=== PATIENT | female | born 1965 | race Caucasian/White ===

== ENCOUNTER 2016-02-27 14:00 | Outpatient (RCR) ==
--- NOTE | 2016-02-18 16:21 | RS.OPPTDN ---
Subjective Date of Note: 02/18/16 Visit #: 6 Date of Evaluation: 01/23/16 Payer Source: Medicaid Treatment Diagnosis: neck pain, cervical spondylosis Current Subjective/complaints:: Reports hurting more yesterday,at the base of her neck ,also had a migraine headache. Pain Assessment - Pain Description Pain Location: right side of neck and R occipital region Pain Description: Tightness, Aching Current Pain Intensity: not rated - Heat/Cryotherapy Treatment: Hot Pack (20 mins. to cervical area,prior to manual therapy) Interventions - Exercise/Activities/Manual Therapy Exercises/Activities: Independent with HEP for cervical ROM and postural awareness Total minutes of Exercise: 0 Manual Therapy: X 30 mins. total, DTM to decrease muscle tone along SCM, upper traps, and cervical paraspinals in prone position,occipital release in supine. Total minutes of Manual Therapy: 0 HOME EXERCISE PROGRAM: cervical retraction, pec stretch (corner stretch) and levator scapula stretch - Charges Total Direct Minutes: 30 Total Treatment Time: 50 Procedures billed for this date of service:: hp,manual therapy Assessment: Patient has trigger points along the medial border of the R scapula today that are tender to palpate ,but this improves as treatment progresses. Patient Education: Education of Plan of Care Patient demonstrates compliance with HEP?: Yes Short Term Goals Goal #1: Left cervical rotation WFL's. Goal to be met by: 02/09/16 Progress towards Goal:: Partially Met Goal #2: Muscle tone in bilateral upper traps decreased to minimal. Goal to be met by: 02/09/16 Progress towards Goal:: Partially Met Goal #3: Headache frequency reduced to less than daily. Goal to be met by: 02/09/16 (migraine yesterday) Progress towards Goal:: Regressing Goal #4: Patient to demonstrate improved postural awareness. 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 Goal to be met by: 03/06/16 Progress towards goal: Met Goal #2: Pt able to perform all home and work activities with minimal neck/head pain Goal to be met by: 03/06/16 Progress towards goal: Progressing Goal #3: Score on Neck Disability Index improved to 20. Goal to be met by: 03/06/16 Goal #4: Patient able to sleep through the night w/o interruption from neck pain. Goal to be met by: 03/06/16 Plan PLAN OF CARE EXPIRES ON:: 03/06/16 ORDER # VISITS AND/OR THROUGH DATE: 03/06/16 PLAN: Continue Plan of Care
--- NOTE | 2016-02-20 15:24 | RS.CXNS ---
Date of scheduled appointment: 02/20/16 Type: Cancel Reason for Cancel/NS: Unknown
--- NOTE | 2016-02-25 16:25 | RS.OPPTDN ---
Subjective Date of Note: 02/25/16 Visit #: 7 Date of Evaluation: 01/23/16 Payer Source: Medicaid Treatment Diagnosis: neck pain, cervical spondylosis Current Subjective/complaints:: Reports last feeling ill,went to , has possible gall bladder issues.She does feel the therapy has helped her neck. Pain Assessment - Pain Description Pain Location: right side of neck and R occipital region Pain Description: Tightness, Aching Current Pain Intensity: not rated - Heat/Cryotherapy Treatment: Hot Pack (20 mins. to cervical region,prior to manual therapy) Interventions - Exercise/Activities/Manual Therapy Exercises/Activities: Independent with HEP for cervical ROM and postural awareness Total minutes of Exercise: 0 Manual Therapy: X 15 mins. total, DTM to decrease muscle tone along SCM, upper traps, and cervical paraspinals in prone position. Total minutes of Manual Therapy: 15 HOME EXERCISE PROGRAM: cervical retraction, pec stretch (corner stretch) and levator scapula stretch - Charges Total Direct Minutes: 15 Total Treatment Time: 35 Procedures billed for this date of service:: hp,manual therapy 1 Assessment: Abbreviated treatment today per patient request ,has to order picker her daughter.She does have less tenderness along the lateral aspect of her neck, upper traps.She still has tenderness with moderate pressure at the occiput. Patient Education: Education of diagnosis, Body/Joint mechanics, Home Exercise Program, Home Safety, Activity Modification, Education of Plan of Care Patient demonstrates compliance with HEP?: Yes Short Term Goals Goal #1: Left cervical rotation WFL's. Goal to be met by: 02/09/16 Progress towards Goal:: Partially Met Goal #2: Muscle tone in bilateral upper traps decreased to minimal. Goal to be met by: 02/09/16 Progress towards Goal:: Partially Met Goal #3: Headache frequency reduced to less than daily. Goal to be met by: 02/09/16 Progress towards Goal:: Progressing Goal #4: Patient to demonstrate improved postural awareness. Goal to be met by: 02/09/16 Progress towards Goal:: Partially Met Correction Goals Goal #1: Pt independent and compliant with basic HEP. Goal to be met by: 03/06/16 Progress towards goal: Met Goal #2: Pt able to perform all home and work activities with minimal neck/head pain Goal to be met by: 03/06/16 Progress towards goal: Partially Met Goal #3: Score on Neck Disability Index improved to 20. Goal to be met by: 03/06/16 Goal #4: Patient able to sleep through the night w/o interruption from neck pain. Goal to be met by: 03/06/16 Progress towards goal: Progressing Plan PLAN OF CARE EXPIRES ON:: 03/06/16 ORDER # VISITS AND/OR THROUGH DATE: 03/06/16 PLAN: Continue Plan of Care
--- NOTE | 2016-02-27 15:26 | RS.OPPTDC ---
Date of Discharge: 02/27/16 Date of Evaluation: 01/23/16 Number of Visits: 8 Treatment Diagnosis: neck pain, cervical spondylosis Current Level of Function: Independent in community and all ADL's. Pain Assessment - Pain Description Pain Location: right side of neck and R occipital region Pain Description: Tightness, Dull, Aching Current Pain Intensity: not rated Functional Outcome Measure Neck Disability Index: 22 - G Codes & Severity Modifier G Codes & Modifier: NA Source of G Code score: NA Observation - Observation Posture: Decreased Cervical Lordosis Gait - Gait Pattern General Gait Pattern Observation: No Deviations/Normal General Range of Motion: WFL - Heat/Cryotherapy Treatment: Hot Pack (20 mins. prior to manual therapy) Interventions - Exercise/Activities/Manual Therapy Exercises/Activities: Independent with HEP for cervical ROM and postural awareness Total minutes of Exercise: 0 Manual Therapy: X 25 mins. total, DTM to decrease muscle tone along SCM, upper traps, and cervical paraspinals in prone position. Total minutes of Manual Therapy: 25 HOME EXERCISE PROGRAM: cervical retraction, pec stretch (corner stretch) and levator scapula stretch - Charges Total Direct Minutes: 25 Total Treatment Time: 45 Procedures billed for this date of service:: hp,manual therapy Assessment Assessment: Patient agrees with D/C plan today,has progressed well ,but her headaches and cervical pain are dependent upon amount of daily activity,with some symptoms being chronic due to cervical surgery in the past.She is motivated and compliant to recommendations of the therapy staff. Patient Education: Education of diagnosis, Body/Joint mechanics, Home Exercise Program, Home Safety, Activity Modification, Education of Plan of Care Rehab Potential: Good Short Term Goals Goal #1: Left cervical rotation WFL's. Goal to be met by: 02/09/16 Progress towards Goal:: Met Goal #2: Muscle tone in bilateral upper traps decreased to minimal. Goal to be met by: 02/09/16 Progress towards Goal:: Partially Met Comments:: R upper trap still has moderate tone Goal #3: Headache frequency reduced to less than daily. Goal to be met by: 02/09/16 Progress towards Goal:: Partially Met Goal #4: Patient to demonstrate improved postural awareness. Goal to be met by: 02/09/16 Progress towards Goal:: Partially Met Support Coordinator Goals Goal #1: Pt independent and compliant with basic HEP. Goal to be met by: 03/06/16 Progress towards goal: Met Goal #2: Pt able to perform all home and work activities with minimal neck/head pain Goal to be met by: 03/06/16 Progress towards goal: Met Goal #3: Score on Neck Disability Index improved to 20. Goal to be met by: 03/06/16 (22) Progress towards goal: Partially Met Goal #4: Patient able to sleep through the night w/o interruption from neck pain. Goal to be met by: 03/06/16 Progress towards goal: Partially Met Plan Reason for Discharge:: No Further Skilled Therapy Indicated
== END 2016-03-16 ==
PROVIDERS: ATTEND Neurological Surgery
DX: M51.36 Other intervertebral disc degeneration, lumbar region (principal); M54.17 Radiculopathy, lumbosacral region

== ENCOUNTER 2016-03-21 21:33 | Emergency (ER) ==
[2016-03-21 21:42] VITALS: BP 156/94; TEMP 97.3; BMI 21.7
[2016-03-21] MEDS ORDERED: PHENERGAN 25 MG/ML VIAL IM STA (22:19)
[2016-03-21] MEDS ORDERED: DILAUDID 2 MG/ML SYRINGE IM STA (22:19)
--- NOTE | 2016-03-21 22:36 | ED.PDOC ---
General ED Provider: Dr. ALEXY HALL-ER Chief Complaint: Headache Stated Complaint: my neck is hurting--i get injections and misssed my appt in jan--i worked out tonight and did too many stretches Time Seen by Physician: 21:40 Mode of Arrival: Walk-In Information Source: Patient Exam Limitations: No limitations Primary Care Provider: ALEXY HALL Nursing and Triage Documentation Reviewed and Agree: Yes Musculoskeletal Complaint Exam - Neck Pain Complaint/Exam Mechanism of Injury: Reports: No known trauma Onset/Duration: several hours Symptoms Are: Still present Timing: Constant Episodes Lasting: Hours Initial Severity: Mild Current Severity: Moderate Location: Reports: Discrete (posterior cervical) Character: Reports: Dull, Aching, Spasmodic, Stiffness Aggravating: Reports: Position, Movement Alleviating: Reports: None Associated Signs and Symptoms: Reports: Headache. Denies: Swelling, Redness, Bruising, Fever, Nuchal rigidity, Weakness, Paresthesia Related History: Reports: Previous neck injury Meningitis Risk Factors: Reports: None Cervical Spine Injury Risk Factors: Reports: Post-Midline CS tender Related Surgical History: Reports: Cervical Fusion Carotid Bruit Present: No Pain on Passive Flexion: Yes Positive Kernig's Sign: Yes ROM Limited In: Present: Flexion, Extension Pain Located at: posterior neck Tenderness: Present: Paraspinal Focal Weakness: Present: None Focal Sensory Loss: Reports: None Differential Diagnoses: Arthritis Review of Systems - Review Of Systems Constitutional: Reports: No symptoms Eyes: Reports: No symptoms Ears, Nose, Mouth, Throat: Reports: No symptoms Respiratory: Reports: No symptoms Cardiac: Reports: No symptoms GI: Reports: No symptoms : Reports: No symptoms Musculoskeletal: Reports: Neck pain Skin: Reports: No symptoms Neurological: Reports: No symptoms Endocrine: Reports: No symptoms Hematologic/Lymphatic: Reports: No symptoms All Other Systems: Reviewed and Negative Past Medical History - Past Medical History Endocrine: Reports: Unknown Cardiovascular: Reports: Unknown Respiratory: Reports: Unknown Hematological: Reports: Unknown Gastrointestinal: Reports: Unknown Genitourinary: Reports: Unknown Neuro/Psych: Reports: Unknown Musculoskeletal: Reports: Unknown Cancer: Reports: Unknown Last Menstrual Period: 5 days ago - Surgical History General Surgical History: Reports: Unknown - Family History Family History: Reports: Unknown - Social History Smoking Status: Never smoker Hx Substance Use: No Alcohol Screening: None Lives: With family - Immunizations Tetanus Shot up to Date: Yes Physical Exam - Physical Exam Appearance: Well-appearing, No pain distress, Well-nourished Pain Distress: Moderate Eyes: JERRY, EOMI, Conjunctiva clear ENT: Ears normal, Nose normal, Oropharynx normal Neck: Supple Respiratory: Airway patent, Breath sounds clear, Breath sounds equal, Respirations nonlabored Cardiovascular: RRR, Pulses normal, No rub, No murmur GI/: Soft, Nontender, No masses, Bowel sounds normal, No Organomegaly Musculoskeletal: Limited ROM Skin: Warm, Dry, Normal color Neurological: Sensation intact, Motor intact, Reflexes intact, Cranial nerves intact, Alert, Oriented Psychiatric: Affect appropriate, Mood appropriate Critical Care Note - Critical Care Note Total Time (mins): 0 Course - Course Orders, Labs, Meds: Orders Category Date Time Status Hydromorphone HCl/Pf [Dilaudid 2 mg/ml Syringe] MEDS 03/21/16 22:19 Discontinued 2 mg IM ONCE STA Promethazine HCl [Phenergan 25 mg/ml Vial] MEDS 03/21/16 22:19 Discontinued 25 mg IM ONCE STA Medications Discontinued Medications Generic Name Dose Route Start Last Admin Trade Name Freq PRN Reason Stop Dose Admin Hydromorphone HCl 2 mg 03/21/16 22:19 Dilaudid 2 Mg/Ml Syringe IM 03/21/16 22:20 ONCE STA Promethazine HCl 25 mg 03/21/16 22:19 Phenergan 25 Mg/Ml Vial IM 03/21/16 22:20 ONCE STA Vital Signs: Temp Pulse Resp BP Pulse Ox 03/21/16 21:34 97.3 F L 76 18 156/94 H 98 Departure - Departure Time of Disposition: 22:36 Disposition: HOME SELF-CARE Discharge Problem: Chronic neck pain Instructions: Neck Pain (ED) Condition: Good Pt referred to PMD for follow-up: Yes Additional Instructions: continue f/u with pain mananagement Allergies/Adverse Reactions: Allergies nitrofurantoin [From Macrobid] Adverse Reaction (Verified 03/21/16 21:41) Hives Sulfa (Sulfonamide Antibiotics) Adverse Reaction (Verified 03/21/16 21:42) sulfamethoxazole [From Bactrim] Adverse Reaction (Verified 03/21/16 21:41) trimethoprim [From Bactrim] Adverse Reaction (Verified 03/21/16 21:41) Home Medications: Ambulatory Orders Calcium Citrate 200 mg PO TID 03/21/16 Cetirizine HCl [Zyrtec] 10 mg PO DAILY 03/21/16 Levothyroxine Sodium [Synthroid] 100 mcg PO QDAC 03/21/16 Multivitamin [Multi-Vitamin Daily] 1 each PO DAILY 03/21/16 Norethindrone-E.estradiol-Iron [Microgestin Fe 1.5-30 Tab] 1 each PO DAILY 03/21 Tizanidine HCl [Zanaflex] 4 mg PO BEDTIME 03/21/16 Disposition Discussed With: Patient, Family
== END 2016-03-21 23:20 | disposition home or self-care (01) ==
LOC: ED 21:33
DX: M54.2 Cervicalgia (principal); G89.29 Other chronic pain; R51 Headache
CPT/HCPCS: 96372; 99282

== ENCOUNTER 2016-03-21 23:40 | Emergency (ER) ==
[2016-03-21 23:40] VITALS: BMI 21.7
[2016-03-21 23:47] VITALS: BP 152/92; TEMP 97
[2016-03-21] MEDS ORDERED: ZOFRAN 4 MG/2 ML IM STA (23:47)
--- NOTE | 2016-03-21 23:58 | ED.PDOC ---
General ED Provider: Dr. ALEXY HALL-ER Chief Complaint: Nausea/Vomiting Stated Complaint: im nauseated--i think it was from my pain meds--denies any chest pain or sob.. Time Seen by Physician: 23:45 Mode of Arrival: Walk-In Information Source: Patient, Family Exam Limitations: No limitations Primary Care Provider: ALEXY HALL Nursing and Triage Documentation Reviewed and Agree: Yes GI Complaint Exam - Vomiting/Diarrhea Complaint/Exam Onset/Duration: one hour Symptoms Are: Still present Episodes of Vomiting over last 24 Hours: 0 Initial Severity: Mild Current Severity: Mild Character of Vomiting: Denies: Non-bilious, Bilious, Bloody, Retching Aggravating: Reports: None Alleviating: Reports: None Associated Signs and Symptoms: Denies: Dizziness, Light-headedness, Melena, Hematemesis, Fever, Abdominal pain, Cramping Recent Positive Test: No Use of Oral Contraceptives: No Use of Depoprovera: No Compliant With Contraceptive Use: No Non-GI Risk Factors: Reports: None Surgical Obstruction Risk Factors: Reports: None Related Surgical History: Reports: None Abdominal Findings: Present: None Kussmaul Respirations Present: No Differential Diagnoses: Dehydration Review of Systems - Review Of Systems Constitutional: Reports: No symptoms Eyes: Reports: No symptoms Ears, Nose, Mouth, Throat: Reports: No symptoms Respiratory: Reports: No symptoms Cardiac: Reports: No symptoms GI: Reports: Nausea : Reports: No symptoms Musculoskeletal: Reports: No symptoms Skin: Reports: No symptoms Neurological: Reports: No symptoms Endocrine: Reports: No symptoms Hematologic/Lymphatic: Reports: No symptoms All Other Systems: Reviewed and Negative Past Medical History - Past Medical History Endocrine: Reports: Unknown Cardiovascular: Reports: Unknown Respiratory: Reports: Unknown Hematological: Reports: Unknown Gastrointestinal: Reports: Unknown Genitourinary: Reports: Unknown Neuro/Psych: Reports: Unknown Musculoskeletal: Reports: Unknown Cancer: Reports: Unknown Last Menstrual Period: 5 days ago - Surgical History General Surgical History: Reports: Unknown - Family History Family History: Reports: Unknown - Social History Smoking Status: Never smoker Hx Substance Use: No Alcohol Screening: None - Immunizations Tetanus Shot up to Date: No (unsure) Physical Exam - Physical Exam Appearance: Well-appearing, No pain distress, Well-nourished Eyes: JERRY, EOMI, Conjunctiva clear ENT: Ears normal, Nose normal, Oropharynx normal Neck: Supple Respiratory: Airway patent, Breath sounds clear, Breath sounds equal, Respirations nonlabored Cardiovascular: RRR, Pulses normal, No rub, No murmur GI/: Soft, Nontender, No masses, Bowel sounds normal, No Organomegaly Musculoskeletal: Limited ROM Skin: Warm, Dry, Normal color Neurological: Sensation intact, Motor intact, Reflexes intact, Cranial nerves intact, Alert, Oriented Psychiatric: Affect appropriate, Mood appropriate Re-Evaluation - Re-Evaluation Time of Re-Evaluation: 23:59 Status: Improved Vital Signs Stable: Yes Pain Level: 1 Appearance: NAD Lungs: Clear Skin: Warm and Dry Neuro: Alert and Oriented X3 CV: RRR Critical Care Note - Critical Care Note Total Time (mins): 0 Course - Course Orders, Labs, Meds: Orders Category Date Time Status Ondansetron HCl/Pf [Zofran 4 mg/2 ml] MEDS 03/21/16 23:47 Discontinued 4 mg IM ONCE STA Medications Discontinued Medications Generic Name Dose Route Start Last Admin Trade Name Freq PRN Reason Stop Dose Admin Ondansetron HCl 4 mg 03/21/16 23:47 Zofran 4 Mg/2 Ml IM 03/21/16 23:48 ONCE STA Vital Signs: Temp Pulse Resp BP Pulse Ox 03/21/16 23:41 97 F L 71 18 152/92 H 96 Departure - Departure Time of Disposition: 23:59 Disposition: HOME SELF-CARE Discharge Problem: Nausea Instructions: Acute Nausea and Vomiting (ED) Condition: Good Pt referred to PMD for follow-up: No Additional Instructions: call if any problems Allergies/Adverse Reactions: Allergies nitrofurantoin [From Macrobid] Adverse Reaction (Verified 03/21/16 23:47) Hives Sulfa (Sulfonamide Antibiotics) Adverse Reaction (Verified 03/21/16 23:47) sulfamethoxazole [From Bactrim] Adverse Reaction (Verified 03/21/16 23:47) trimethoprim [From Bactrim] Adverse Reaction (Verified 03/21/16 23:47) Home Medications: Ambulatory Orders Calcium Citrate 200 mg PO TID 03/21/16 Cetirizine HCl [Zyrtec] 10 mg PO DAILY 03/21/16 Levothyroxine Sodium [Synthroid] 100 mcg PO QDAC 03/21/16 Multivitamin [Multi-Vitamin Daily] 1 each PO DAILY 03/21/16 Norethindrone-E.estradiol-Iron [Microgestin Fe 1.5-30 Tab] 1 each PO DAILY 03/21 Tizanidine HCl [Zanaflex] 4 mg PO BEDTIME 03/21/16 Disposition Discussed With: Patient, Family
[2016-03-22] MEDS ORDERED: VISTARIL INJ IM STA (00:13)
[2016-03-22] MEDS ORDERED: SODIUM CHLORIDE 1,000 ML IV STA (01:40)
[2016-03-22] MEDS ORDERED: ZOFRAN 4 MG/2 ML IVP STA (01:41)
[2016-03-22 01:59] LABS: BASOPHILS # (AUTO) 0.1 K/uL (0-0.2); BASOPHILS % (AUTO) 0.8 % (0.0-3.0); EOSINOPHILS # (AUTO) 0.1 K/ul (0.0-0.7); EOSINOPHILS % (AUTO) 0.7 % (0.0-7.0); HEMATOCRIT 37.4 % (37.0-47.0); HEMOGLOBIN 12.8 g/dl (12.0-16.0); IMMATURE GRANULOCYTE % (AUTO) 0.3 % (0.0-5.0); LYMPHOCYTES # (AUTO) 2.1 K/uL (0.60-3.4); LYMPHOCYTES % (AUTO) 27.4 (10.0-50.0); MEAN CORPUSCULAR HEMOGLOBIN 31.8 pg (27.0-31.0); MEAN CORPUSCULAR HGB CONC 34.2 (31.8-35.4); MEAN CORPUSCULAR VOLUME 92.8 fl (81.0-99.0); MONOCYTES # (AUTO) 0.6 K/uL (0.4-2.0); MONOCYTES % (AUTO) 8.4 (0-10); NEUTROPHILS # (AUTO) 4.7 K/ul (2.0-6.9); NEUTROPHILS % (AUTO) 62.4; PLATELET COUNT 216 10^3/uL (140-440); RED BLOOD COUNT 4.03 10^6/ul (4.20-5.40); WHITE BLOOD COUNT 7.51 K/ul (4.6-10.2)
[2016-03-22 02:28] LABS: ALBUMIN 3.8 g/dL (3.4-5.0); ALBUMIN/GLOBULIN RATIO 1.23; ANION GAP 14.6; BILIRUBIN,TOTAL 0.53 mg/dL (0.00-1.20); BUN/CREATININE RATIO 15.92; CALCIUM 8.1 mg/dL (8.2-10.2); CREATININE 1.13 mg/dL (0.60-1.30); POTASSIUM 4.6 mmol/L (3.5-5.10); TOTAL PROTEIN 6.9 g/dL (6.4-8.2)
[2016-03-22] MEDS ORDERED: REGLAN IVP STA (02:32)
[2016-03-22 03:04] LABS: CREATINE KINASE 273 U/L
== END 2016-03-22 05:18 | disposition home or self-care (01) ==
LOC: ED 23:40
DX: R11.2 Nausea with vomiting, unspecified (principal); M54.2 Cervicalgia; G89.29 Other chronic pain; R51 Headache
CPT/HCPCS: 36415; 80053; 82150; 82550; 82553; 83690; 84484; 85025; 93005; 93010; 96360; 96361; 96372; 96374; 96375; 99282; 99283; 99284

== ENCOUNTER 2016-04-13 20:26 | Emergency (ER) ==
[2016-04-13] MEDS ORDERED: SODIUM CHLORIDE 1,000 ML IV STA (20:33)
[2016-04-13] MEDS ORDERED: PROTONIX IV IVP STA (20:33)
[2016-04-13] MEDS ORDERED: PHENERGAN 25 MG/ML VIAL 25 MG in SODIUM CHLORIDE 50 ML IV STA (20:34)
[2016-04-13] MEDS ORDERED: PEPCID IVP STA (20:34)
[2016-04-13 20:36] VITALS: BP 168/79; TEMP 97.3; BMI 22.1
[2016-04-13 20:42] LABS: BASOPHILS % (AUTO) 0.1 % (0.0-3.0); HEMATOCRIT 37.3 % (37.0-47.0); IMMATURE GRANULOCYTE % (AUTO) 0.3 % (0.0-5.0); LYMPHOCYTES % (AUTO) 8.6 (10.0-50.0); MEAN CORPUSCULAR HEMOGLOBIN 31.9 pg (27.0-31.0); MEAN CORPUSCULAR HGB CONC 34.9 (31.8-35.4); MEAN CORPUSCULAR VOLUME 91.4 fl (81.0-99.0); MONOCYTES # (AUTO) 0.5 K/uL (0.4-2.0); NEUTROPHILS # (AUTO) 10.4 K/ul (2.0-6.9); PLATELET COUNT 285 10^3/uL (140-440); RED BLOOD COUNT 4.08 10^6/ul (4.20-5.40); WHITE BLOOD COUNT 11.99 K/ul (4.6-10.2)
--- NOTE | 2016-04-13 21:09 | CT ---
EXAM: CT of the abdomen and pelvis without contrast. HISTORY: Status post cholecystectomy today with persistent nausea. PROCEDURE: Contiguous axial CT images of the abdomen and pelvis without contrast with coronal and s agittal reformats. FINDINGS: The liver is normal in appearance. The gallbladder is surgically absent. The pancreas, spleen, right adrenal gland and kidneys are normal in appearance. There are calcifications in the l eft adrenal gland. The abdominal aorta is normal in appearance. The appendix is not visualized. T he other visualized loops of bowel are normal in appearance. There is a moderate amount of free int raperitoneal air consistent with the patients recent surgery. There is minimal free fluid in the pe lvis. The uterus is unremarkable. The bladder is adequately filled with no abnormality identified. The bony structures are unremarkable. There is subcutaneous air in the right abdominal wall consi stent with the patient's surgical history. Impression: Status postcholecystectomy with moderate amount of free intraperitoneal air consistent with the patients surgical history. If a perforated viscus is suspected, recommend further evaluati on. Minimal free fluid in the pelvis. Minimal subcutaneous air in the right abdominal wall consistent with the patient's recent surgery.
[2016-04-13] MEDS ORDERED: PHENERGAN 25 MG/ML VIAL ONE (21:12)
[2016-04-13 21:18] LABS: ALANINE AMINOTRANSFERASE 21 U/L (12-78); ALBUMIN/GLOBULIN RATIO 1.14; ALKALINE PHOSPHATASE 41 U/L (42-98); AMYLASE 70 U/L (25-115); ANION GAP 15.9; ASPARTATE AMINO TRANSFERASE 32 U/L (15-37); BLOOD UREA NITROGEN 12 mg/dL (7-18); BUN/CREATININE RATIO 10.16; CALCIUM 8.3 mg/dL (8.2-10.2); CARBON DIOXIDE 24 mmol/L (21-32); CHLORIDE 100 mmol/L (98-107); CREATINE KINASE 176 U/L; CREATININE 1.18 mg/dL (0.60-1.30); GLUCOSE 112 mg/dL (70-110); LIPASE 16 U/L (8-78); POTASSIUM 4.9 mmol/L (3.5-5.10); SODIUM 135 mmol/L (136-145); TOTAL PROTEIN 7.5 g/dL (6.4-8.2)
[2016-04-13 21:19] LABS: CREATINE KINASE MB 1.1 ng/ml (0.0-3.6)
[2016-04-13] MEDS ORDERED: ZOFRAN 4 MG/2 ML IVP STA (21:52)
[2016-04-13 22:07] LABS: BILIRUBIN,URINE Negative (NEGATIVE); KETONES,URINE Negative (NEGATIVE); LEUKOCYTE ESTERASE ,URINE Trace (NEGATIVE); NITRITE,URINE Negative (NEGATIVE); PROTEIN,URINE Trace (NEGATIVE); URINE, BLOOD Trace-intact (NEGATIVE)
[2016-04-13 22:15] LABS: ADD URINE MICROSCOPIC YES
[2016-04-13 22:17] LABS: BACTERIA,URINE 1+ (NOT PRESENT)
--- NOTE | 2016-04-13 22:45 | ED.PDOC ---
General ED Provider: Dr. ALEXY HALL-ER Chief Complaint: Nausea/Vomiting Stated Complaint: jacob been throwing up --i had surgery tdoay Time Seen by Physician: 20:35 Mode of Arrival: Walk-In Information Source: Patient, Family Exam Limitations: No limitations Primary Care Provider: ALEXY HALL Nursing and Triage Documentation Reviewed and Agree: Yes GI Complaint Exam - Vomiting/Diarrhea Complaint/Exam Onset/Duration: several hours Symptoms Are: Still present Initial Severity: Mild Current Severity: Mild Character of Vomiting: Reports: Non-bilious Aggravating: Reports: Food Alleviating: Reports: None Associated Signs and Symptoms: Denies: Dizziness, Light-headedness, Melena, Hematemesis, Fever, Abdominal pain, Cramping Recent Positive Test: No (had neg preg test this am) Use of Oral Contraceptives: No Use of Depoprovera: No Compliant With Contraceptive Use: No Non-GI Risk Factors: Reports: None Surgical Obstruction Risk Factors: Reports: Prior abdominal surgery Related Surgical History: Reports: Cholecystectomy Abdominal Findings: Present: None [place] Respirations Present: No Differential Diagnoses: Dehydration, Viral Gastroenteritis, Bacterial Gastroenteritis Review of Systems - Review Of Systems Constitutional: Reports: No symptoms Eyes: Reports: No symptoms Ears, Nose, Mouth, Throat: Reports: No symptoms Respiratory: Reports: No symptoms Cardiac: Reports: No symptoms GI: Reports: Nausea, Vomiting : Reports: No symptoms Musculoskeletal: Reports: No symptoms Skin: Reports: No symptoms Neurological: Reports: No symptoms Endocrine: Reports: No symptoms Hematologic/Lymphatic: Reports: No symptoms All Other Systems: Reviewed and Negative Past Medical History - Past Medical History Endocrine: Reports: Unknown Cardiovascular: Reports: Unknown Respiratory: Reports: Unknown Hematological: Reports: Unknown Gastrointestinal: Reports: Unknown Genitourinary: Reports: CKD Neuro/Psych: Reports: Unknown Musculoskeletal: Reports: Unknown Cancer: Reports: Unknown Last Menstrual Period: POST MENAPAUSAL - Surgical History General Surgical History: Reports: Unknown - Family History Family History: Reports: Unknown - Social History Smoking Status: Never smoker Hx Substance Use: No Alcohol Screening: None - Immunizations Tetanus Shot up to Date: No Physical Exam - Physical Exam Appearance: Well-appearing, No pain distress, Well-nourished Eyes: JERRY, EOMI, Conjunctiva clear ENT: Ears normal, Nose normal, Oropharynx normal Neck: Supple Respiratory: Airway patent Cardiovascular: RRR GI/: Soft, Nontender, No masses, Bowel sounds normal, No Organomegaly Musculoskeletal: Normal strength, ROM intact, No edema, No calf tenderness Skin: Warm, Dry, Normal color Neurological: Sensation intact, Motor intact, Reflexes intact, Cranial nerves intact, Alert, Oriented Psychiatric: Affect appropriate Interpretation - Radiology Interpretation Radiology Interpretation By: Radiologist Radiology Results: Negative Exam Interpreted: CT Scan - EKG Interpretation Time of EKG #1: 22:47 Rate: Normal Rhythm: Sinus Ectopy: None [place]: NL ST Segment: Normal Re-Evaluation - Re-Evaluation Time of Re-Evaluation: 22:47 Status: Improved Vital Signs Stable: Yes Pain Level: 1--but no nausea Appearance: NAD Lungs: Clear Skin: Warm and Dry Neuro: Alert and Oriented X3 CV: RRR Critical Care Note - Critical Care Note Total Time (mins): 0 Course - Course Hematology/Chemistry: 04/13/16 20:30 04/13/16 20:30 Orders, Labs, Meds: Lab Review 04/13/16 04/13/16 20:30 21:52 WBC 11.99 H RBC 4.08 L Hgb 13.0 Hct 37.3 MCV 91.4 MCH 31.9 H MCHC 34.9 RDW Coeff of Dinesh 12.4 Plt Count 285 Immature Gran % (Auto) 0.3 Neut % (Auto) 87.0 Lymph % (Auto) 8.6 L [place] % (Auto) 4.0 Eos % (Auto) 0.0 Baso % (Auto) 0.1 Immature Gran # (Auto) 0.0 Neut # 10.4 H Lymph # 1.0 [place] # 0.5 Eos # 0.0 Baso # 0.0 Sodium 135 L Potassium 4.9 Chloride 100 Carbon Dioxide 24 Anion Gap 15.9 BUN 12 Creatinine 1.18 Estimated GFR (MDRD) 48.00 BUN/Creatinine Ratio 10.16 Glucose 112 H Calcium 8.3 Total Bilirubin 0.60 AST 32 ALT 21 Alkaline Phosphatase 41 L Total Creatine Kinase 176 CK-MB (CK-2) 1.1 CK-MB (CK-2) % 0.61248 Troponin I < 0.0100 Total Protein 7.5 Albumin 4.0 Globulin 3.5 Albumin/Globulin Ratio 1.14 Amylase 70 Lipase 16 Urine Color Yellow Urine Clarity Slightly Urine pH 7.0 Ur Specific [place] 1.020 Urine Protein Trace Urine Glucose (UA) Negative Urine Ketones Negative Urine Blood Trace-intact Urine Nitrite Negative Urine Bilirubin Negative Urine Urobilinogen 0.2 Ur Leukocyte Esterase Trace Urine Microscopic RBC 2-5 Urine Microscopic WBC 2-5 Ur Squamous Epith Cells 20-30 Urine Bacteria 1+ Urine Mucus [employer] Urine Yeast Trace Orders Category Date Time Status EKG-(ED ONLY) Stat CARDIO 04/13/16 20:32 Completed IV [ED IV/MEDIPORT/POWERPORT] .ONCE EMERGENCY 04/13/16 20:33 Active AMYLASE Stat LAB 04/13/16 20:30 Completed CBC W/ AUTO DIFF Stat LAB 04/13/16 20:30 Completed COMPREHENSIVE METABOLIC PANEL Stat LAB 04/13/16 20:30 Completed CREATINE KINASE Stat LAB 04/13/16 20:30 Completed LIPASE Stat LAB 04/13/16 20:30 Completed TROPONIN I Stat LAB 04/13/16 20:30 Completed URINALYSIS C & S IF INDICATED Stat LAB 04/13/16 21:52 Completed URINE CULTURE Stat LAB 04/13/16 22:19 Received 0.9 % Sodium Chloride [Saline Flush] MEDS 04/13/16 20:33 Ordered 1 syr IVF PRN PRN Famotidine Inj [Pepcid] MEDS 04/13/16 20:34 Discontinued 40 mg IVP ONCE STA Ondansetron HCl/Pf [Zofran 4 mg/2 ml] MEDS 04/13/16 21:52 Discontinued 8 mg IVP ONCE STA Pantoprazole Sodium [Protonix IV] MEDS 04/13/16 20:33 Discontinued 40 mg IVP ONCE STA Promethazine HCl [Phenergan 25 mg/ml Vial] MEDS 04/13/16 21:12 Discontinued 25 mg .ROUTE .STK-MED ONE Promethazine HCl [Phenergan 25 mg/ml Vial] 25 mg MEDS 04/13/16 20:34 Discontinued 0.9 % Sodium Chloride [Sodium Chloride] 50 ml IV ONCE Sodium Chloride 0.9% [Sodium Chloride] 1,000 ml MEDS 04/13/16 20:[address] ABDOMEN/PELVIS WO CONTRAST Stat RADS 04/13/16 20:34 Completed Medications Generic Name Dose Route Start Last Admin Trade Name Freq PRN Reason Stop Dose Admin Sodium Chloride 1 syr 04/13/16 20:33 Saline Flush IVF PRN PRN To flush IV Discontinued Medications Generic Name Dose Route Start Last Admin Trade Name Rose Marie PRN Reason Stop Dose Admin Famotidine 40 mg 04/13/16 20:34 04/13/16 21:24 Pepcid IVP 04/13/16 20:35 40 mg ONCE STA Administration Promethazine HCl 25 mg/ Sodium 51 mls @ 75 mls/hr 04/13/16 20:34 04/13/16 21: 24 Chloride IV 04/13/16 21:14 75 mls/hr ONCE STA Administration Sodium Chloride 1,000 mls @ 500 mls/hr 04/13/16 20:33 04/13/16 21:25 Sodium Chloride IV 04/13/16 22:32 500 mls/hr BOLUS STA Administration Ondansetron HCl 8 mg 04/13/16 21:52 04/13/16 22:02 Zofran 4 Mg/2 Ml IVP 04/13/16 21:53 8 mg ONCE STA Administration Pantoprazole Sodium 40 mg 04/13/16 20:33 04/13/16 21:24 Protonix Iv IVP 04/13/16 20:34 40 mg ONCE STA Administration Vital Signs: Temp Pulse Resp BP Pulse Ox 04/13/16 20:30 97.3 F L 70 20 168/79 H 97 Departure - Departure Time of Disposition: 22:47 Disposition: HOME SELF-CARE Discharge Problem: Nausea Instructions: Acute Nausea and Vomiting (ED) Condition: Good Pt referred to PMD for follow-up: Yes Additional Instructions: if vomiting persists--talk to your surgeon Allergies/Adverse Reactions: Allergies nitrofurantoin [From Macrobid] Adverse Reaction (Verified 04/13/16 20:33) Hives Sulfa (Sulfonamide Antibiotics) Adverse Reaction (Verified 04/13/16 20:33) sulfamethoxazole [From Bactrim] Adverse Reaction (Verified 04/13/16 20:33) trimethoprim [From Bactrim] Adverse Reaction (Verified 04/13/16 20:33) Home Medications: Ambulatory Orders Calcium Citrate 200 mg PO TID 03/21/16 Cetirizine HCl [Zyrtec] 10 mg PO DAILY 03/21/16 Levothyroxine Sodium [Synthroid] 100 mcg PO QDAC 03/21/16 Multivitamin [Multi-Vitamin Daily] 1 each PO DAILY 03/21/16 Norethindrone-E.estradiol-Iron [Microgestin Fe 1.5-30 Tab] 1 each PO DAILY 03/21 Tizanidine HCl [Zanaflex] 4 mg PO BEDTIME 03/21/16 Disposition Discussed With: Patient, Family
== END 2016-04-13 23:03 | disposition home or self-care (01) ==
LOC: ED 20:26
DX: R11.2 Nausea with vomiting, unspecified (principal); Z98.890 Other specified postprocedural states; Z79.899 Other long term (current) drug therapy
CPT/HCPCS: 36415; 80053; 81001; 82150; 82550; 82553; 83690; 84484; 85025; 87086; 93005; 93010; 96361; 96365; 96375; 99284

== ENCOUNTER 2017-04-08 12:00 | Outpatient (CLI) ==
--- NOTE | 2017-04-08 14:01 | DI ---
EXAM: Two views of the chest. History: Cough. Findings: Heart size is within normal limits. No focal consolidation. No appreciable pleural fluid and no pneumothorax. Postsurgical changes of the cervical spine. No acute osseous abnormalities. Calcified granuloma within the left hilum. Impression: No acute cardiopulmonary process.
== END 2017-04-08 12:01 | disposition home or self-care (01) ==
LOC: RAD 12:00
PROVIDERS: ATTEND Family Medicine
DX: R05 Cough (principal)

== ENCOUNTER 2017-04-08 13:56 | Emergency (ER) ==
[2017-04-08 14:02] VITALS: BP 118/71; TEMP 101.2; BMI 22.4
--- NOTE | 2017-04-08 15:33 | ED.PDOC ---
General ED Provider: Dr. ALFREDA BAKER Chief Complaint: Respiratory Complaint Stated Complaint: flu like symp Time Seen by Physician: 14:00 Mode of Arrival: Walk-In Information Source: Patient Exam Limitations: No limitations Primary Care Provider: ALEXY HALL Nursing and Triage Documentation Reviewed and Agree: Yes Reviewed sepsis parameters & appropriate labs ordered?: Yes (seen with MAT AT ALL TIMES ) System Inflammatory Response Syndrome: Not Applicable Sepsis Protocol: For patient's 13 years and over: Temp is 96.8 and below OR 101 and greater Pulse >90 BPM Resp >20/minute Acutely Altered Mental Status Are patient's symptoms suggestive of a new infection, such as: -Pneumonia -Skin, Soft Tissue -Endocarditis -UTI -Bone, Joint Infection -Implantable Device -Acute Abdominal Infection -Wound Infection -Meningitis -Blood Stream Catheter Infection -Unknown System Inflammatory Response Syndrome: Not Applicable EENT Complaint Exam - Throat Complaint/Exam Symptoms Are: Still present Timimg: Intermittent Initial Severity: Mild Current Severity: Mild Aggravating: Reports: None Associated Signs and Symptoms: Reports: Cough, Nasal congestion. Denies: Fever , Dysphagia, Drooling, Foreign body sensation, Chills, Wheezing, Hoarseness, Sinus discomfort, Difficulty breathing, Lethargy, Irritability, Decreased activity, Vomiting, Diarrhea, Decreased hearing, Ear drainage Uvula Midline: Yes Nivia-tonsillar Fluctuence: No Scarlatinaform Rash Present: No Stridor Present: No Sinus Tenderness Present: No Tonsillar Hypertrophy Present: No Tonsillar Exudate Present: No Nivia-tonsillar Swelling Present: No Adenopathy Present: No Splenomegaly Present: No Differential Diagnoses: Pharyngitis Review of Systems - Review Of Systems Constitutional: Reports: Fever, Malaise, Loss of appetite Eyes: Reports: No symptoms Ears, Nose, Mouth, Throat: Reports: No symptoms Respiratory: Reports: Cough Cardiac: Reports: No symptoms GI: Reports: No symptoms : Reports: No symptoms Musculoskeletal: Reports: No symptoms Skin: Reports: No symptoms Neurological: Reports: No symptoms Endocrine: Reports: No symptoms Hematologic/Lymphatic: Reports: No symptoms All Other Systems: Reviewed and Negative Past Medical History - Past Medical History Previously Healthy: Yes Endocrine: Reports: Unknown Cardiovascular: Reports: Unknown Respiratory: Reports: Unknown Hematological: Reports: Unknown Gastrointestinal: Reports: Unknown Genitourinary: Reports: CKD Neuro/Psych: Reports: Unknown Musculoskeletal: Reports: Unknown Cancer: Reports: Unknown Last Menstrual Period: menopause - Surgical History General Surgical History: Reports: Unknown - Family History Family History: Reports: Unknown - Social History Smoking Status: Never smoker Hx Substance Use: No Alcohol Screening: None Physical Exam - Physical Exam Appearance: Well-appearing, No pain distress, Well-nourished Eyes: JERRY, EOMI, Conjunctiva clear ENT: Ears normal, Nose normal, Oropharynx normal Respiratory: Airway patent, Breath sounds clear, Breath sounds equal, Respirations nonlabored Cardiovascular: RRR, Pulses normal, No rub, No murmur GI/: Soft, Nontender, No masses, Bowel sounds normal, No Organomegaly Musculoskeletal: Normal strength, ROM intact, No edema, No calf tenderness Skin: Warm, Dry, Normal color Neurological: Sensation intact, Motor intact, Reflexes intact, Cranial nerves intact, Alert, Oriented Psychiatric: Affect appropriate, Mood appropriate Interpretation - Radiology Interpretation Radiology Interpretation By: Radiologist Radiology Results: Negative Exam Interpreted: CXR Critical Care Note - Critical Care Note Total Time (mins): 0 Course - Course Hematology/Chemistry: 04/08/17 14:30 04/08/17 14:50 Orders, Labs, Meds: Lab Review 04/08/17 04/08/17 04/08/17 14:30 14:30 14:31 WBC 3.88 L RBC 4.18 L Hgb 13.1 Hct 38.2 MCV 91.4 MCH 31.3 H MCHC 34.3 RDW Coeff of Dinesh 11.9 Plt Count 174 Immature Gran % (Auto) 0.0 Neut % (Auto) 72.4 Lymph % (Auto) 12.4 [place] % (Auto) 13.9 H Eos % (Auto) 0.8 Baso % (Auto) 0.5 Immature Gran # (Auto) 0.0 Neut # 2.8 Lymph # 0.5 L [place] # 0.5 Eos # 0.0 Baso # 0.0 Sodium Potassium Chloride Carbon Dioxide Anion Gap BUN Creatinine Estimated GFR (MDRD) BUN/Creatinine Ratio Glucose Calcium Total Bilirubin AST ALT Alkaline Phosphatase Total Protein Albumin Globulin Albumin/Globulin Ratio Procalcitonin < 0.05 Influenza A (Rapid) Negative by naat Influenza B (Rapid) Positive by naat H 04/08/17 14:50 WBC RBC Hgb Hct MCV MCH MCHC RDW Coeff of Dinesh Plt Count Immature Gran % (Auto) Neut % (Auto) Lymph % (Auto) [place] % (Auto) Eos % (Auto) Baso % (Auto) Immature Gran # (Auto) Neut # Lymph # [place] # Eos # Baso # Sodium 141 Potassium 4.2 Chloride 102 Carbon Dioxide 28 Anion Gap 15.2 BUN 13 Creatinine 1.19 Estimated GFR (MDRD) 48.00 BUN/Creatinine Ratio 10.92 Glucose 90 Calcium 8.8 Total Bilirubin 0.4 AST 29 ALT 17 Alkaline Phosphatase 78 Total Protein 8.1 Albumin 4.3 Globulin 3.8 Albumin/Globulin Ratio 1.13 Procalcitonin Influenza A (Rapid) Influenza B (Rapid) Orders Category Date Time Status BLOOD CULTURE Stat LAB 04/08/17 14:24 Ordered CBC W/ AUTO DIFF Stat LAB 04/08/17 14:30 Completed COMPREHENSIVE METABOLIC PANEL Stat LAB 04/08/17 14:50 Completed FLU A/B MOLECULAR Stat LAB 04/08/17 14:31 Completed MOLECULAR GROUP A STREP Stat LAB 04/08/17 14:31 Completed PROCALCITONIN Stat LAB 04/08/17 14:30 Completed CHEST, 2 VIEWS PA & LAT Stat RADS 04/08/17 14:24 Ordered Vital Signs: Temp Pulse Resp BP Pulse Ox 04/08/17 13:56 101.2 F H 104 H 20 118/71 96 Departure - Departure Time of Disposition: 15:32 Disposition: HOME SELF-CARE Discharge Problem: Influenza Instructions: Influenza (ED) Condition: Good Pt referred to PMD for follow-up: Yes IPMP verified?: Yes Additional Instructions: Please call your Family Physician as soon as possible to schedule a follow-up appointment. Allergies/Adverse Reactions: Allergies nitrofurantoin [From Macrobid] Adverse Reaction (Verified 04/08/17 14:06) Hives Sulfa (Sulfonamide Antibiotics) Adverse Reaction (Verified 04/08/17 14:06) sulfamethoxazole [From Bactrim] Adverse Reaction (Verified 04/08/17 14:06) trimethoprim [From Bactrim] Adverse Reaction (Verified 04/08/17 14:06) Home Medications: Ambulatory Orders Calcium Citrate 200 mg PO TID 03/21/16 Cetirizine HCl [Zyrtec] 10 mg PO DAILY 03/21/16 Levothyroxine Sodium [Synthroid] 100 mcg PO QDAC 03/21/16 Multivitamin [Multi-Vitamin Daily] 1 each PO DAILY 03/21/16 Amoxicillin/Potassium Clav [Augmentin 875-125 mg Tab] 1 tab PO Q12HR 04/08/17 Gabapentin [Neurontin] 100 mg PO BEDTIME 04/08/17 Disposition Discussed With: Patient
== END 2017-04-08 15:55 | disposition home or self-care (01) ==
LOC: ED 13:56
DX: J10.1 Influenza due to other identified influenza virus with other respiratory manifestations (principal)
CPT/HCPCS: 36415; 80053; 84145; 85025; 87040; 87502; 87651; 99283

== ENCOUNTER 2017-09-09 09:23 | Outpatient (CLI) ==
--- NOTE | 2017-09-09 10:34 | US ---
EXAM: Ultrasound retroperitoneal complete. HISTORY: Edema. Chronic kidney disease stage III. COMPARISON: CT 04/13/2016. TECHNIQUE: Multiple pyle scale and color Doppler images. FINDINGS: Right kidney measures 8.3 x 3.5 x 2.9 cm. The left kidney measures 8.5 x 3.7 x 2.7 cm. C ortical echogenicity is normal. There is no hydronephrosis. Urinary bladder is unremarkable. IMPRESSION: No acute sonographic abnormality of the kidneys or bladder.
== END 2017-09-09 09:24 | disposition home or self-care (01) ==
LOC: RAD 09:23
PROVIDERS: ATTEND Internal Medicine
DX: N18.3 Chronic kidney disease, stage 3 (moderate) (principal); R60.9 Edema, unspecified; E83.30 Disorder of phosphorus metabolism, unspecified

== ENCOUNTER 2018-03-17 08:21 | Outpatient (CLI) ==
--- NOTE | 2018-03-17 09:18 | US ---
EXAM: Thyroid ultrasound HISTORY: Nodular goiter COMPARISON: None TECHNIQUE: Thyroid ultrasound was performed FINDINGS: Patient status post thyroidectomy. No definite residual thyroid tissue is seen. There is a enlarged lymph node adjacent to the left thyroid bed region, measuring 0.8 x 0.6 x 2.0 cm. IMPRESSION: Unexpected finding: Status post thyroidectomy. No residual thyroid tissue identified. E nlarged lymph node adjacent to the left thyroid bed region, could represent a malignant lymph node
== END 2018-03-17 08:22 | disposition home or self-care (01) ==
LOC: RAD 08:21
PROVIDERS: ATTEND Internal Medicine Endocrinology, Diabetes & Metabolism
DX: E04.9 Nontoxic goiter, unspecified (principal)

== ENCOUNTER 2023-11-05 18:23 | Observation (INO) ==
--- NOTE | 2023-11-05 18:58 | ED.PDOC ---
General ED Provider: Dr. GIA LEOS MD Chief Complaint: Syncope Stated Complaint: 58 yo WF was at a local festival, standing and talking to someone and felt like she may pass out. Went to the medical tent and her BP was 190/80 and she was sweating. She felt sweaty, near syncope and her vision was fuzzy. No BRYAN. No chest pain, cough or SOB but felt her heart was vibrating like a cell phone; however, no other palpitation of fast or slow heartbeat. Her BP has been borderline at times, up to 150/100 but most of the time her BP has been borderline, such as 140/80. 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 She was placed on HCTZ of 12.5 mg 4 days ago for her mildly elevated BP at times. No DM, cardiac, or lung disease. Time Seen by Provider: 11/05/23 18:25 Mode of Arrival: Walk-In Information Source: Patient Exam Limitations: No limitations Primary Care Provider: NETTE SILVER APRN, FNPBC Referred to ED by: Other (self) Nursing and Triage Documentation Reviewed and Agree: Yes Does Patient Take Opioids?: No Is Patient Opioid Naive?: No What is Opioid Naive?: *Opioid Naive implies the patient is not already taking opioids or not chronically receiving opioids on a daily basis. *PRN dosing is not "usually" associated with tolerance. *Patients are at higher risk of over-sedation and aspiration. What is Opioid Tolerant?: *Opioid Tolerance implies less than the expected response to an opioid. *Acquired tolerance is defined by the patient taking 60mg of oral morphine daily (or equianalgesic dose of another opioid) for 1 week or more. *Often associated with chronic pain. *May take more than usual dose to achieve desired pain control. Review of Systems Review Of Systems Constitutional: Reports Sweats Eyes: Reports No symptoms Ears, Nose, Mouth, Throat: Reports No symptoms Respiratory: Reports No symptoms; Denies Shortness of Breath Cardiac: Reports Palpitations; Denies Chest pain GI: Denies Abdominal pain, Constipated, Diarrhea or Vomiting : Reports No symptoms Musculoskeletal: Reports No symptoms Skin: Reports No symptoms Neurological: Reports Anxiety; Denies Cognitive dysfunction or Headache Endocrine: Denies Excessive sweating or Flushing [facility] Medical History Thyroid cancer C73 - Malignant neoplasm of thyroid gland (ICD-10) Thyroid disease E07.9 - Disorder of thyroid, unspecified (ICD-10) Social History Smoking and tobacco status: Never smoker Alcohol intake: never Counseling given: No Counseling provided: none Substance use type: does not use Counseling given: No Counseling provided: none Hillary/baptist: [facility] Special hillary needs: No Number of children: 1 Current occupational status: employed Do you think of yourself as: straight/heterosexual Current gender identity: female Female Reproductive History Menstrual Hx Hysterectomy: No Hx Tubal Ligation: No Physical Exam Physical Exam Appearance: Reports Well-appearing, No pain distress and Well-nourished Ill-appearing: None Pain Distress: None Eyes: Reports JERRY and EOMI ENT: Reports Nose normal and Oropharynx normal Neck: Supple Respiratory: Reports Airway patent, Breath sounds clear and Breath sounds equal; Denies Breath sounds diminished or Wheezes Cardiovascular: Reports RRR, Pulses normal, No rub and No murmur GI/: Reports Soft and Nontender Musculoskeletal: Reports Normal strength and ROM intact Skin: Reports Warm, Dry and Normal color Neurological: Reports Sensation intact and Motor intact Psychiatric: Reports Affect appropriate and Mood appropriate Interpretation EKG Interpretation EKG Interpretation By: ED Physician Time of EKG #1: 18:59 Rhythm: Sinus Ectopy: None [place]: NL ST Segment: Normal Interpretation: Normal EKG Physician Notification Case Discussed Physician Notified: Sylwia Hernandez Time of Notification: 19:47 Comments: Will admit to OBS Course Course 11/05/23 18:56 11/05/23 18:56 Orders, Labs, Meds: Lab Review 11/05/23 18:56 WBC 6.65 RBC 3.69 L Hgb 11.1 L Hct 33.8 L MCV 91.6 MCH 30.1 MCHC 32.8 RDW Coeff of Dinesh 12.4 Plt Count 226 Immature Gran % (Auto) 0.2 Neut % (Auto) 64.4 Lymph % (Auto) 22.0 [place] % (Auto) 11.3 H Eos % (Auto) 1.5 Baso % (Auto) 0.6 Neut # (Auto) 4.3 Lymph # (Auto) 1.5 [place] # (Auto) 0.8 Eos # (Auto) 0.1 Baso # (Auto) 0.0 Immature Gran # (Auto) 0.0 Sodium 140.0 Potassium 3.47 L Chloride 98.5 Carbon Dioxide 31.3 H Anion Gap 13.67 BUN 20.2 H Creatinine 1.97 H Estimated GFR (MDRD) 26.00 BUN/Creatinine Ratio 10.25 Glucose 49.8 L* Calcium 8.34 L Total Bilirubin 0.31 AST 41.8 H ALT 17.6 Alkaline Phosphatase 55.1 Troponin I < 0.012 Total Protein 7.43 Albumin 4.54 Globulin 2.89 Albumin/Globulin Ratio 1.57 D-Dimer 798.27 H Orders Category Date Time Status ADMIT OBSERVATION [PLACE PATIENT OBSERVATION] .TO ADMISSION 11/05/23 19:50 Ordered MEDSURG (MONITORED BED) EKG-(ED ONLY) Stat CARDIO 11/05/23 18:43 Completed ACCUCHECK (MED/SURG, SCU) [BLOOD GLUCOSE MONITORING ( CARE 11/05/23 19:52 Ordered MED/SURG)] ACCUCHECK Q6H TELEMETRY MONITORING TELE CARE 11/05/23 19:50 Ordered Orthostatic Vital Signs [ED ORTHOSTATIC VITAL SIGNS] . EMERGENCY 11/05/23 18:43 Active ONCE Saline Lock [ED IV/MEDIPORT/POWERPORT] .ONCE EMERGENCY 11/05/23 18:43 Active CBC W/ AUTO DIFF DAILY@0600 LAB 11/06/23 06:00 Ordered CBC W/ AUTO DIFF DAILY@0600 LAB 11/07/23 06:00 Ordered CBC W/ AUTO DIFF Stat LAB 11/05/23 18:56 Completed CBC W/ AUTO DIFF Stat LAB 11/05/23 19:52 Ordered CMP [COMPREHENSIVE METABOLIC PANEL] DAILY@0600 LAB 11/06/23 06:00 Ordered CMP [COMPREHENSIVE METABOLIC PANEL] DAILY@0600 LAB 11/07/23 06:00 Ordered CMP [COMPREHENSIVE METABOLIC PANEL] Stat LAB 11/05/23 18:56 Completed CMP [COMPREHENSIVE METABOLIC PANEL] Stat LAB 11/05/23 19:52 Ordered D-DIMER Stat LAB 11/05/23 18:56 Completed SARS COV-2 RNA RAPID ABBIE Stat LAB 11/05/23 Uncollected TROPONIN I DAILY@0600 LAB 11/06/23 06:00 Ordered TROPONIN I DAILY@0600 LAB 11/07/23 06:00 Ordered TROPONIN I Stat LAB 11/05/23 18:56 Completed TROPONIN I Stat LAB 11/05/23 19:52 Ordered 0.9 % Sodium Chloride [Saline Flush] Meds 11/05/23 18:43 Active 1 syr IVF PRN PRN Alendronate Sodium [Fosamax] Meds 11/05/23 20:00 Ordered See Dose Instructions PO .COMPLEX Dextrose 50 % in Water [Dextrose 50%-Water Abboject] Meds 11/05/23 19:29 Discontinued 50 ml IVP ONCE ONE Enoxaparin Sodium [Lovenox] Meds 11/05/23 20:00 Ordered 40 mg SUBCUT DAILY Fluticasone Propionate [Flonase] Meds 11/05/23 20:00 Ordered 1 spray ALECIA QDAY Gabapentin [Neurontin] Meds 11/05/23 21:00 Ordered 300 mg PO TID Pantoprazole Sodium [Protonix] Meds 11/05/23 20:00 Ordered 40 mg PO QDAY RINGERS LACTATED SOLUTION @ 125 MLS/HR(1,000ml) Meds 11/05/23 19:52 Ordered Ringers Lactated Solution [Lactated Ringers] 1,000 ml IV 125 mls/hr calcium citrate malate-vit D3 Meds 11/06/23 09:00 Ordered 2 tab PO BID levothyroxine Meds 11/05/23 20:00 Ordered 88 mcg PO QDAY [id number] [Alive Women's 50 Plus ( Meds 11/06/23 09:00 Ordered blend)] 1 tab PO DAILY CHEST, 1V AP ONLY Stat RADS 11/05/23 18:43 Completed Medications Generic Name Dose Route Start Last Admin Trade Name Freq PRN Reason Stop Dose Admin Alendronate Sodium 0 mg 11/05/23 20:00 Alendronate Sodium 70 Mg Tablet PO .COMPLEX SAMIRA Enoxaparin Sodium 40 mg 11/05/23 20:00 Enoxaparin Sodium 40 Mg/0.4 Ml Syr SUBCUT DAILY SAMIRA Fluticasone Propionate 1 spray 11/05/23 20:00 Fluticasone Propionate 16 Gm Nasal [place] ALECIA QDAY SAMIRA Gabapentin 300 mg 11/05/23 21:00 Gabapentin 300 Mg Capsule PO TID SAMIRA Lactated Ringer's 1,000 mls @ 125 mls/hr 11/05/23 19:52 Lactated Ringers IV 11/06/23 03:51 .Q8H ONE Non-Formulary Medication 2 tab 11/06/23 09:00 Calcium Citrate Malate-Vit D3 PO BID [facility] Non-Formulary Medication 88 mcg 11/05/23 20:00 Levothyroxine PO QDAY [facility] Non-Formulary Medication 1 tab 11/06/23 09:00 [id number] [Alive Women's 50 Plus (Blend)] PO DAILY [facility] Pantoprazole Sodium 40 mg 11/05/23 20:00 Pantoprazole Sodium 40 Mg Tablet. PO QDAY [facility] Sodium Chloride 1 syr 11/05/23 18:43 0.9% Sodium Chloride 10 Ml Disp.Syrin IVF PRN PRN To flush IV Discontinued Medications Generic Name Dose Route Start Last Admin Trade Name Freq PRN Reason Stop Dose Admin Dextrose 50 ml 11/05/23 19:29 11/05/23 19:33 Dextrose 50 % In Water 50 Ml Disp.Syrin IVP 11/05/23 19:30 50 ml ONCE ONE Administration Vital Signs: Temp Pulse Resp BP Pulse Ox 11/05/23 18:53 102 H 124/72 11/05/23 18:53 97 133/87 11/05/23 18:53 97 126/81 11/05/23 18:25 97.9 F 102 H 16 144/89 H 100 ANALISA Risk Score ANALISA Risk Score: Risk Score Odds of by 30D 0 0.1 (0.1-0.2) 1 0.3 (0.2-0.3) 2 0.4 (0.3-0.5) 3 0.7 (0.6-0.9) 4 1.2 (1.0-1.5) 5 2.2 (1.9-2.6) 6 3.0 (2.5-3.6) 7 4.8 (3.8-6.1) Physician Progress Note: Labs noted and BUN/Cr has changed quite a bit since September. Glucose of 49 and she had lunch around 2:30 PM and half a funnel cake. 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
[2023-11-05 19:03] LABS: BASOPHILS % (AUTO) 0.6 % (0.0-3.0); EOSINOPHILS # (AUTO) 0.1 K/ul (0.0-0.7); EOSINOPHILS % (AUTO) 1.5 % (0.0-7.0); HEMATOCRIT 33.8 % (37.0-47.0); HEMOGLOBIN 11.1 g/dl (12.0-16.0); IMMATURE GRANULOCYTE % (AUTO) 0.2 % (0.0-5.0); LYMPHOCYTES # (AUTO) 1.5 K/uL (0.60-3.4); MEAN CORPUSCULAR HEMOGLOBIN 30.1 pg (27.0-31.0); MEAN CORPUSCULAR HGB CONC 32.8 (31.8-35.4); MEAN CORPUSCULAR VOLUME 91.6 fl (81.0-99.0); MONOCYTES # (AUTO) 0.8 K/uL (0.4-2.0); MONOCYTES % (AUTO) 11.3 (0-10); NEUTROPHILS # (AUTO) 4.3 K/ul (2.0-6.9); NEUTROPHILS % (AUTO) 64.4 % (42.2-75.2); PLATELET COUNT 226 10^3/uL (140-440); RDW COEFFICIENT OF VARIATION 12.4 % (11.6-14.8); RED BLOOD COUNT 3.69 10^6/ul (4.20-5.40); WHITE BLOOD COUNT 6.65 K/ul (4.6-10.2)
[2023-11-05 19:11] LABS: ALANINE AMINOTRANSFERASE 17.6 U/L (0-35); ALBUMIN 4.54 g/dL (3.5-5.0); ALKALINE PHOSPHATASE 55.1 U/L (38-126); ASPARTATE AMINO TRANSFERASE 41.8 U/L (14-36); BILIRUBIN,TOTAL 0.31 mg/dL (0.2-1.3); BLOOD UREA NITROGEN 20.2 mg/dL (7-17); CALCIUM 8.34 mg/dL (8.4-10.2); CARBON DIOXIDE 31.3 mmol/L (22-30.0); CHLORIDE 98.5 mmol/L (98-107); CREATININE 1.97 mg/dL (0.60-1.30); POTASSIUM 3.47 mmol/L (3.5-5.1); TOTAL PROTEIN 7.43 g/dL (6.3-8.2)
[2023-11-05 19:13] LABS: GLUCOSE 49.8 mg/dL (74-106)
[2023-11-05 19:23] LABS: TROPONIN I < 0.012 ng/ml (0.0000-0.120)
[2023-11-05] MEDS: DEXTROSE 50%-WATER ABBOJECT IVP ONE (19:33)
--- NOTE | 2023-11-05 19:38 | DI ---
EXAM: CHEST FRONTAL VIEW HISTORY: Near-syncope COMPARISON: 11/30/2023 FINDINGS: Heart size and mediastinum remain within normal limits. Lungs are free of infiltrate. No consolidation or pleural fluid. No suspicious pulmonary opacities or nodules. There is no pneu mothorax or acute bony finding. IMPRESSION: No acute cardiopulmonary process.
--- NOTE | 2023-11-05 19:39 | ED.PDOC ---
General ED Provider: Dr. GIA LEOS MD Chief Complaint: Syncope Time Seen by Provider: 11/05/23 18:25 Mode of Arrival: Walk-In Information Source: Patient Exam Limitations: No limitations Primary Care Provider: NETTE SILVER APRN, FNPBC Does Patient Take Opioids?: No What is Opioid Naive?: *Opioid Naive implies the patient is not already taking opioids or not chronically receiving opioids on a daily basis. *PRN dosing is not "usually" associated with tolerance. *Patients are at higher risk of over-sedation and aspiration. What is Opioid Tolerant?: *Opioid Tolerance implies less than the expected response to an opioid. *Acquired tolerance is defined by the patient taking 60mg of oral morphine daily (or equianalgesic dose of another opioid) for 1 week or more. *Often associated with chronic pain. *May take more than usual dose to achieve desired pain control. [facility] Medical History Thyroid cancer C73 - Malignant neoplasm of thyroid gland (ICD-10) Thyroid disease E07.9 - Disorder of thyroid, unspecified (ICD-10) Social History Smoking and tobacco status: Never smoker Alcohol intake: never Counseling given: No Counseling provided: none Substance use type: does not use Counseling given: No Counseling provided: none Hillary/quaker: [employer] Special hillary needs: No Number of children: 1 Current occupational status: employed Do you think of yourself as: straight/heterosexual Current gender identity: female Female Reproductive History Menstrual Hx Hysterectomy: No Hx Tubal Ligation: No Course Course 11/05/23 18:56 11/05/23 18:56 Orders, Labs, Meds: Lab Review 11/05/23 18:56 WBC 6.65 RBC 3.69 L Hgb 11.1 L Hct 33.8 L MCV 91.6 MCH 30.1 MCHC 32.8 RDW Coeff of Dinesh 12.4 Plt Count 226 Immature Gran % (Auto) 0.2 Neut % (Auto) 64.4 Lymph % (Auto) 22.0 [place] % (Auto) 11.3 H Eos % (Auto) 1.5 Baso % (Auto) 0.6 Neut # (Auto) 4.3 Lymph # (Auto) 1.5 [place] # (Auto) 0.8 Eos # (Auto) 0.1 Baso # (Auto) 0.0 Immature Gran # (Auto) 0.0 Sodium 140.0 Potassium 3.47 L Chloride 98.5 Carbon Dioxide 31.3 H Anion Gap 13.67 BUN 20.2 H Creatinine 1.97 H Estimated GFR (MDRD) 26.00 BUN/Creatinine Ratio 10.25 Glucose 49.8 L* Calcium 8.34 L Total Bilirubin 0.31 AST 41.8 H ALT 17.6 Alkaline Phosphatase 55.1 Troponin I < 0.012 Total Protein 7.43 Albumin 4.54 Globulin 2.89 Albumin/Globulin Ratio 1.57 D-Dimer 798.27 H Orders Category Date Time Status ADMIT OBSERVATION [PLACE PATIENT OBSERVATION] .TO ADMISSION 11/05/23 19:50 Ordered MEDSURG (MONITORED BED) EKG-(ED ONLY) Stat CARDIO 11/05/23 18:43 Completed ACCUCHECK (MED/SURG, SCU) [BLOOD GLUCOSE MONITORING ( CARE 11/05/23 19:52 Ordered MED/SURG)] ACCUCHECK Q6H TELEMETRY MONITORING TELE CARE 11/05/23 19:50 Ordered Orthostatic Vital Signs [ED ORTHOSTATIC VITAL SIGNS] . EMERGENCY 11/05/23 18:43 Active ONCE Saline Lock [ED IV/MEDIPORT/POWERPORT] .ONCE EMERGENCY 11/05/23 18:43 Active CBC W/ AUTO DIFF DAILY@0600 LAB 11/06/23 06:00 Ordered CBC W/ AUTO DIFF DAILY@0600 LAB 11/07/23 06:00 Ordered CBC W/ AUTO DIFF Stat LAB 11/05/23 18:56 Completed CBC W/ AUTO DIFF Stat LAB 11/05/23 19:52 Ordered CMP [COMPREHENSIVE METABOLIC PANEL] DAILY@0600 LAB 11/06/23 06:00 Ordered CMP [COMPREHENSIVE METABOLIC PANEL] DAILY@0600 LAB 11/07/23 06:00 Ordered CMP [COMPREHENSIVE METABOLIC PANEL] Stat LAB 11/05/23 18:56 Completed CMP [COMPREHENSIVE METABOLIC PANEL] Stat LAB 11/05/23 19:52 Ordered D-DIMER Stat LAB 11/05/23 18:56 Completed SARS COV-2 RNA RAPID ABBIE Stat LAB 11/05/23 Uncollected TROPONIN I DAILY@0600 LAB 11/06/23 06:00 Ordered TROPONIN I DAILY@0600 LAB 11/07/23 06:00 Ordered TROPONIN I Stat LAB 11/05/23 18:56 Completed TROPONIN I Stat LAB 11/05/23 19:52 Ordered 0.9 % Sodium Chloride [Saline Flush] Meds 11/05/23 18:43 Active 1 syr IVF PRN PRN Alendronate Sodium [Fosamax] Meds 11/05/23 20:00 Ordered See Dose Instructions PO .COMPLEX Dextrose 50 % in Water [Dextrose 50%-Water Abboject] Meds 11/05/23 19:29 Discontinued 50 ml IVP ONCE ONE Enoxaparin Sodium [Lovenox] Meds 11/05/23 20:00 Ordered 40 mg SUBCUT DAILY Fluticasone Propionate [Flonase] Meds 11/05/23 20:00 Ordered 1 spray ALECIA QDAY Gabapentin [Neurontin] Meds 11/05/23 21:00 Ordered 300 mg PO TID Pantoprazole Sodium [Protonix] Meds 11/05/23 20:00 Ordered 40 mg PO QDAY RINGERS LACTATED SOLUTION @ 125 MLS/HR(1,000ml) Meds 11/05/23 19:52 Ordered Ringers Lactated Solution [Lactated Ringers] 1,000 ml IV 125 mls/hr calcium citrate malate-vit D3 Meds 11/06/23 09:00 Ordered 2 tab PO BID levothyroxine Meds 11/05/23 20:00 Ordered 88 mcg PO QDAY [id number] [Alive Women's 50 Plus ( Meds 11/06/23 09:00 Ordered blend)] 1 tab PO DAILY CHEST, 1V AP ONLY Stat RADS 11/05/23 18:43 Completed Medications Generic Name Dose Route Start Last Admin Trade Name Freq PRN Reason Stop Dose Admin Sodium Chloride 1 syr 11/05/23 18:43 0.9% Sodium Chloride 10 Ml Disp.Syrin IVF PRN PRN To flush IV Discontinued Medications Generic Name Dose Route Start Last Admin Trade Name Freq PRN Reason Stop Dose Admin Dextrose 50 ml 11/05/23 19:29 11/05/23 19:33 Dextrose 50 % In Water 50 Ml Disp.Syrin IVP 11/05/23 19:30 50 ml ONCE ONE Administration Vital Signs: Temp Pulse Resp BP Pulse Ox 11/05/23 18:53 102 H 124/72 11/05/23 18:53 97 133/87 09/21/24 18:53 97 126/81 11/05/23 18:25 97.9 F 102 H 16 144/89 H 100 ANALISA Risk Score ANALISA Risk Score: Risk Score Odds of by 30D 0 0.1 (0.1-0.2) 1 0.3 (0.2-0.3) 2 0.4 (0.3-0.5) 3 0.7 (0.6-0.9) 4 1.2 (1.0-1.5) 5 2.2 (1.9-2.6) 6 3.0 (2.5-3.6) 7 4.8 (3.8-6.1) Discharge Plan Discharge Patient Disposition: PLACED OBSERVATION Discharge Problem: Acute kidney injury, Near syncope, Hypoglycemia 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
[2023-11-05] MEDS: LACTATED RINGERS 1,000 ML IV ONE (20:11)
[2023-11-05 20:39] LABS: SARS COV-2 RNA RAPID NAAT NEGATIVE (NEGATIVE)
[2023-11-05] MEDS: NEURONTIN PO SCH (22:15)
[2023-11-05] MEDS: FLEXERIL PO PRN (22:15)
[2023-11-05] MEDS: K-DUR PO ONE (22:16)
[2023-11-05] MEDS: LOVENOX SUBCUT SCH (22:16)
[2023-11-05 22:27] VITALS: BMI 25.7
[2023-11-06] MEDS: LACTATED RINGERS 1,000 ML IV SCH (03:52)
[2023-11-06 05:17] VITALS: BP 115/77; PULSE 76; RESP 18; TEMP 97.4
[2023-11-06] MEDS: SYNTHROID PO SCH (05:36)
[2023-11-06 05:37] LABS: BASOPHILS % (AUTO) 0.6 % (0.0-3.0); EOSINOPHILS # (AUTO) 0.1 K/ul (0.0-0.7); EOSINOPHILS % (AUTO) 2.1 % (0.0-7.0); HEMATOCRIT 31.6 % (37.0-47.0); HEMOGLOBIN 10.2 g/dl (12.0-16.0); IMMATURE GRANULOCYTE % (AUTO) 0.2 % (0.0-5.0); LYMPHOCYTES # (AUTO) 2.1 K/uL (0.60-3.4); LYMPHOCYTES % (AUTO) 38.4 (10.0-50.0); MEAN CORPUSCULAR HEMOGLOBIN 29.8 pg (27.0-31.0); MEAN CORPUSCULAR HGB CONC 32.3 (31.8-35.4); MEAN CORPUSCULAR VOLUME 92.4 fl (81.0-99.0); MONOCYTES # (AUTO) 0.5 K/uL (0.4-2.0); MONOCYTES % (AUTO) 9.9 (0-10); NEUTROPHILS # (AUTO) 2.6 K/ul (2.0-6.9); NEUTROPHILS % (AUTO) 48.8 % (42.2-75.2); PLATELET COUNT 195 10^3/uL (140-440); RDW COEFFICIENT OF VARIATION 12.5 % (11.6-14.8); RED BLOOD COUNT 3.42 10^6/ul (4.20-5.40); WHITE BLOOD COUNT 5.36 K/ul (4.6-10.2)
[2023-11-06 05:44] LABS: ALANINE AMINOTRANSFERASE 15.4 U/L (0-35); ALBUMIN 3.84 g/dL (3.5-5.0); ALKALINE PHOSPHATASE 54.6 U/L (38-126); ASPARTATE AMINO TRANSFERASE 30.8 U/L (14-36); BILIRUBIN,TOTAL 0.23 mg/dL (0.2-1.3); BLOOD UREA NITROGEN 17.6 mg/dL (7-17); CALCIUM 8.15 mg/dL (8.4-10.2); CARBON DIOXIDE 33.1 mmol/L (22-30.0); CREATININE 1.19 mg/dL (0.60-1.30); GLUCOSE 101.4 mg/dL (74-106); POTASSIUM 4.08 mmol/L (3.5-5.1); SODIUM 139.7 mmol/L (134.5-145)
[2023-11-06 05:57] LABS: TROPONIN I < 0.012 ng/ml (0.0000-0.120)
[2023-11-06] MEDS: MULTIVITAMIN TABLET PO SCH (08:43)
[2023-11-06] MEDS: FLONASE NAS SCH (08:43)
[2023-11-06] MEDS: PROTONIX PO SCH (08:44)
[2023-11-06] MEDS ORDERED: [UNRECOGNIZED DRUG - OTHER] PO SCH (09:00)
[2023-11-06] MEDS ORDERED: CHOLECALCIFEROL PO SCH (09:00)
--- NOTE | 2023-11-06 09:36 | PCM.SS ---
Provider Provider[facility] Date Admission Date: 11/05/23 Discharge Date Discharge Date: 11/06/23 Primary Care Physician Primary Care Physician: NETTE SILVER APRN,[facility] Chief Complaint Reason For Visit: GARRISON, HYPOGLYCEMIA, NEAR SYNCOPE History of Present Illness History of Present Illness: Admitted 11/05/23 20:41, this 58 year old /WHITE/F with pmhx of thyroid cancer post surgical hypothyroidism, chronic kidney disease, rowe's esophagus, lipedema, hypertension, who presents to the ER with a near syncopal event. Patient states that she was at the [facility] on a strip fast and had some barbecue and a funnel cake. It was hot outside and she felt a little sweaty but overall was doing fine. Her and her mom then went to [facility] for the parade there. She was talking to her friend when she felt like she was going to pass out. She states that her vision began to darken and she felt really lightheaded. She had to sit down. She then went to the medical tent and they did an Accu-Chek, but some oxygen on her and checked her blood pressure. Her blood pressure reading was high with systolic 190. She started to feel better and then her mom drove her to the ER. In the ER she was noted to have an acute kidney injury with a creatinine of 1.9 (baseline 1.1). Vitals otherwise normal. D-dimer mildly elevated at 700. She was given fluids and admitted to [facility]. Patient states she is feeling better today but still little foggy. Her renal function has returned to baseline. We discussed her mildly elevated D-dimer and her heart rate mildly elevated at times to 102. She otherwise has not had any recent travel, shortness of breath, chest pain, history of blood clots. However she would feel more comfortable getting the CTA done. [facility] Medical History Medullary carcinoma with surgical intervention C80.1 - Malignant (primary) neoplasm, unspecified (ICD-10) Anterior cervical adenopathy Hx of ACF surgery twice R59.0 - Localized enlarged lymph nodes (ICD-10) Thyroid cancer Thyroidectomy C73 - Malignant neoplasm of thyroid gland (ICD-10) Thyroid disease E07.9 - Disorder of thyroid, unspecified (ICD-10) Family History Other No known health problems Social History Smoking and tobacco status: Never smoker Alcohol intake: never Counseling given: No Counseling provided: none Substance use type: does not use Counseling given: No Counseling provided: none Hillary/rastafarian: [employer] Special hillary needs: No Number of children: 1 Current occupational status: employed Do you think of yourself as: straight/heterosexual Current gender identity: female Medications Mecications: Medications at Discharge (Home Meds & RX) fluticasone propionate 50 mcg/actuation nasal spray,suspension (Flonase Allergy Relief) 1 spray intranasal QDAY 03/17/21 alendronate 70 mg tablet See Rx Instructions .Route .COMPLEX #4 tabs 06/06/23 gabapentin 300 mg capsule 300 mg PO TID chronic low back pain #90 caps 09/29/23 cyclobenzaprine 10 mg tablet 10 mg PO 3XD PRN for muscle spasm #90 tabs 10/19/23 levothyroxine 88 mcg capsule 88 mcg PO QDAY #90 caps 10/31/23 jllmuuft-favk-unguk acid 240 mcg-vit K 120 rld-datxxy-isas 293 tablet (Alive Women's 50 Plus (fruit-veg blend)) 1 tab PO DAILY 10/31/23 pantoprazole 40 mg tablet,delayed release 40 mg PO QDAY #30 tabs 11/01/23 hydrochlorothiazide 12.5 mg tablet 12.5 mg PO QDAY #30 tabs 11/02/23 calcium citrate malate-vitamin D3 500 mg-200 unit tablet 2 tab PO BID 11/05/23 Allergies Allergies Allergy/AdvReac Type Severity Reaction Status Date / Time ibuprofen AdvReac unknown Verified 11/05/23 18:31 nitrofurantoin AdvReac Hives Verified 11/05/23 18:31 [From Macrobid] Sulfa (Sulfonamide AdvReac Unknown Verified 11/05/23 18:31 Antibiotics) sulfamethoxazole AdvReac Unknown Verified 11/05/23 18:31 [From Bactrim] trimethoprim [From Bactrim] AdvReac Unknown Verified 11/05/23 18:31 Review of Systems Constitutional: Denies Fever Head: Reports Normocephalic and Atraumatic Eyes: Reports Vision Changes Cardiovascular: Reports Edema and Syncope (+near syncope, no LOC ); Denies Chest pain or Chest Pressure Respiratory: Denies Cough, Shortness of air or Wheeze Gastrointestinal: Reports Nausea; Denies Vomiting, Diarrhea, Abdominal pain or Melena Genitourinary: Denies Dysuria or Frequency Dermatologic: Denies Rashes Neurological: Reports Other (+near syncope ); Denies Headache Physical Examination Appearance: Positive Well-appearing, Well-nourished, No Apparent Distress and Alert and Oriented x3 Head: Positive Normocephalic and Atraumatic Eyes: Positive JERRY Neck: Positive Supple and Trachea Midline Heart: Positive RRR Respiratory: Positive Breath Sounds Clear, Bilaterally and Respirations Nonlabored; Negative Crackles, Rhonchi or Wheezes GI/: Positive Soft, Nontender, Bowel sounds normal and No Distention Extremities: Positive Edema (+mild, chronic ) and Other (+no redness, calf pain ) Neurological: Positive Cranial nerves intact, Alert and Oriented Psychiatric: Positive Normal Judgement, Normal Insight, Affect Appropriate and Mood Appropriate Vital Signs (Last 4 Hours) Vital Signs Last 4 Hours: Vital Signs: Last 4 Hours 11/06/23 05:55 11/06/23 07:00 Oxygen Delivery Method Room Air Telemetry Type Remote Telemetry Telemetry Monitoring Continues Telemetry Heart Rate 81 EKG TN Interval 0.18 EKG QRS Interval 0.08 Telemetry Strip Reading SR Labs This Visit Labs This Visit: Labs This Visit 11/05/23 11/05/23 11/06/23 18:56 20:17 05:21 WBC 6.65 5.36 RBC 3.69 L 3.42 L Hgb 11.1 L 10.2 L Hct 33.8 L 31.6 L MCV 91.6 92.4 MCH 30.1 29.8 MCHC 32.8 32.3 RDW Coeff of Dinesh 12.4 12.5 Plt Count 226 195 Immature Gran % (Auto) 0.2 0.2 Neut % (Auto) 64.4 48.8 Lymph % (Auto) 22.0 38.4 [place] % (Auto) 11.3 H 9.9 Eos % (Auto) 1.5 2.1 Baso % (Auto) 0.6 0.6 Neut # (Auto) 4.3 2.6 Lymph # (Auto) 1.5 2.1 [place] # (Auto) 0.8 0.5 Eos # (Auto) 0.1 0.1 Baso # (Auto) 0.0 0.0 Immature Gran # (Auto) 0.0 0.0 Sodium 140.0 139.7 Potassium 3.47 L 4.08 Chloride 98.5 102.0 Carbon Dioxide 31.3 H 33.1 H Anion Gap 13.67 8.68 BUN 20.2 H 17.6 H Creatinine 1.97 H 1.19 D Estimated GFR (MDRD) 26.00 47.00 BUN/Creatinine Ratio 10.25 14.78 Glucose 49.8 L* 101.4 D Calcium 8.34 L 8.15 L Magnesium 1.98 Total Bilirubin 0.31 0.23 AST 41.8 H 30.8 ALT 17.6 15.4 Alkaline Phosphatase 55.1 54.6 Troponin I < 0.012 < 0.012 Total Protein 7.43 6.40 Albumin 4.54 3.84 Globulin 2.89 2.56 Albumin/Globulin Ratio 1.57 1.50 D-Dimer 798.27 H SARS CoV-2 RNA Rapid ABBIE Negative Imaging Imaging: EXAM: CHEST FRONTAL VIEW HISTORY: Near-syncope COMPARISON: 11/30/2023 FINDINGS: Heart size and mediastinum remain within normal limits. Lungs are free of infiltrate. No consolidation or pleural fluid. No suspicious pulmonary opacities or nodules. There is no pneumothorax or acute bony finding. IMPRESSION: No acute cardiopulmonary process. EXAM: CTA OF THE PULMONARY ARTERIES WITH CONTRAST TECHNIQUE: CTA of the pulmonary arteries was performed with contrast. 2-D and 3-D reconstructions were performed. HISTORY: Elevated D-dimer COMPARISON: None. FINDINGS: Pulmonary arteries: No pulmonary embolus detected. Lungs/pleura: No mass or consolidation. No pleural effusion.Mild emphysematous changes. Mediastinum: No adenopathy. Cardiovascular: No pericardial effusion. Atherosclerosis of the aorta and branch vessels. Coronary artery calcifications. Chest wall/axillae/thoracic inlet: No mass or adenopathy. Imaged upper abdomen: Unremarkable. Bones: Old appearing compression deformity of L1. IMPRESSION: 1. Negative for pulmonary embolus. 2. Mild emphysematous changes. EXAMINATION: CT OF THE HEAD WITHOUT CONTRAST. HISTORY:Near-syncope. COMPARISON:07/30/2021. MRI 10/09/2020. TECHNIQUE: CT acquisition images were obtained from skull base through vertex. Multiplanar reformats were obtained. No intravenous contrast. FINDINGS: Acute intracranial hemorrhage, mass effect, or midline shift: None. Ventricles and sulci: Congruent in size and configuration. Stephens white differentiation: Maintained. Generalized low density posterior fossa likely represent artifact. Basilar cisterns patent. The posterior fossa is without significant abnormality. No acute extra-axial collection. The extracalvarial soft tissues are without significant abnormalities. Mastoids and paranasal sinuses: Aerated. Osseous structures: Intact without acute fracture. IMPRESSION: No acute intracranial abnormality. Symmetric generalized low density within the posterior fossa most likely represents artifact. If there is ongoing clinical concern, repeat examination could be obtained. Review Review Statement: I have independently reviewed and interpreted the labs/EKGs/imaging that were ordered by the ER provider. I have reviewed all outside records that are available currently in our EMR including imaging/notes/labs from previous visits. Plan Reccomendations/Plan: 1. Near syncope - likely vasovagal while outside in the heat. Hydrate. Trops negative. Tele. 2. GARRISON due to dehydration - Cont fluids 2. Elevated d dimer - CTA to r/o PE in setting of near syncope 3. Hypoglycemia - Pt given dextrose in ER and has been stable since. 4. Hypertension - Recently started on hctz, held overnight 5. Hypothyroidism - Cont home meds 6. GERD - Cont home meds Patient states she is feeling better today but still little foggy. Her renal function has returned to baseline. We discussed her mildly elevated D-dimer and her heart rate mildly elevated at times to 102. She otherwise has not had any recent travel, shortness of breath, chest pain, history of blood clots. Does have hx of malignancy. She would feel more comfortable getting the CTA done. CTA chest and ct head negative. Discussed findings with patient. Discussed whether or not to continue hctz. Encouraged her to continue it but push fluids. F/u with pcp, if Cr and BUN trend up again may need to stop it. Pt understands. Call pcp tomorrow for apt. Discharge diagnoses: 1. Near syncope 2. GARRISON, dehydration - resolved 3. Hypoglycemia, resolved 4. Hypertension 5. Hypothyroidism 6. GERD 7. Hx of medullary thyroid cancer 8. Osteopenia Additional Planning: Case discussed with ED Physician, Dr. Dr. Bardales. DVT Prophylaxis: Lovenox Advanced Care Plannin minutes spent discussing advance care planning. Admit to: Obs Discussed Plan of Care with Dr. Yaritza Lema. Review With Patient Reviewed with Patient and Family: Patient and family have been counseled on condition and care plan and have no immediate questions. I have personally discussed and reviewed the patient's visit/current labs/imaging/decision making with Dr. Yaritza Lema, my supervising attending. Total number of minutes spent with patient [85] min. More than 50% of the time spent with this patient was devoted to counseling and coordination of care. Time of Admission:11/05/23 20:41 Time of Discharge: 11/06/23 0930 Discharge Plan Discharge Discharge Orders: Discharge Patient (ONCE); Ordered 11/06/23 Ordered By: RENAY ELLIS Activity Restrictions/Additional Instructions: DISCHARGE TO HOME DX: GARRISON, DEHYDRATION, NEAR SYNCOPE F/U WITH PCP WITHIN 1-2 WEEKS DIET: PUSH FLUIDS ACTIVITY: TOLERATED Patient Disposition: HOME SELF-CARE Prescriptions: Continued alendronate 70 mg tablet See Rx Instructions .ROUTE .COMPLEX Qty: 4 5RF Dose Instruction: TAKE ONE TABLET EVERY WEEK (TAKE WITH 8OZ OF WATER AND SIT UP STRAIGHT AT LEAST 30 MINUTES AFTER TAKING) Rx Instructions: TAKE ONE TABLET EVERY WEEK (TAKE WITH 8OZ OF WATER AND SIT UP STRAIGHT AT LEAST 30 MINUTES AFTER TAKING) cyclobenzaprine 10 mg tablet 10 mg PO 3XD PRN (Reason: for muscle spasm) Qty: 90 2RF pantoprazole 40 mg tablet,delayed release (DR/EC) 40 mg PO QDAY Qty: 30 2RF hydrochlorothiazide 12.5 mg tablet 12.5 mg PO QDAY Qty: 30 1RF calcium citrate malate-vit D3 500-200 mg-unit tablet 2 tab PO BID Rx Instructions: take 2pm and 4pm fluticasone propionate [Flonase Allergy Relief] 50 mcg/actuation spray,suspension 1 spray intranasal QDAY Rx Instructions: administer into each nostril gabapentin 300 mg capsule 300 mg PO TID Qty: 90 5RF Alive Women's 50 Plus (blend) 240-120-300 mcg tablet 1 tab PO DAILY levothyroxine 88 mcg capsule 88 mcg PO QDAY Qty: 90 0RF Rx Instructions: per endocrinology Did you review [place] DIRECTOR OF EXHIBIT DEVELOPMENT for ALL controlled substances?: Not Applicable Discussed opioids are addictive and Narcan is available by prescription or from pharmacy.: No Condition: Stable
--- NOTE | 2023-11-06 10:26 | CT ---
EXAMINATION: CT OF THE HEAD WITHOUT CONTRAST. HISTORY:Near-syncope. COMPARISON:07/30/2021. MRI 10/09/2020. TECHNIQUE: CT acquisition images were obtained from skull base through vertex. Multiplanar reformat s were obtained. No intravenous contrast. FINDINGS: Acute intracranial hemorrhage, mass effect, or midline shift: None. Ventricles and sulci: Congruent in size and configuration. Stephens white differentiation: Maintained. Generalized low density posterior fossa likely represent artifact. Basilar cisterns patent. The posterior fossa is without significant abnormality. No acute extra-axial collection. The extracalvarial soft tissues are without significant abnormalities. Mastoids and paranasal sinuses: Aerated. Osseous structures: Intact without acute fracture. IMPRESSION: No acute intracranial abnormality. Symmetric generalized low density within the posterior fossa most likely represents artifact. If the re is ongoing clinical concern, repeat examination could be obtained. All CT scans are performed using dose optimization techniques as appropriate to the performed exam an d include at least one of the following: Automated exposure control, adjustment of the mA and/or kV according t o size, and the use of iterative reconstruction technique.
--- NOTE | 2023-11-06 10:31 | CT ---
EXAM: CTA OF THE PULMONARY ARTERIES WITH CONTRAST TECHNIQUE: CTA of the pulmonary arteries was performed with contrast. 2-D and 3-D reconstructions we re performed. HISTORY: Elevated D-dimer COMPARISON: None. FINDINGS: Pulmonary arteries: No pulmonary embolus detected. Lungs/pleura: No mass or consolidation. No pleural effusion.Mild emphysematous changes. Mediastinum: No adenopathy. Cardiovascular: No pericardial effusion. Atherosclerosis of the aorta and branch vessels. Coronary ar gilberto calcifications. Chest wall/axillae/thoracic inlet: No mass or adenopathy. Imaged upper abdomen: Unremarkable. Bones: Old appearing compression deformity of L1. IMPRESSION: 1. Negative for pulmonary embolus. 2. Mild emphysematous changes. All CT scans are performed using dose optimization techniques as appropriate to the performed exam an d includes at least one of the following: Automated exposure control, adjustment of the mA and/or kV according to size, and the use of iterative reconstruction technique. All CT scans are performed using dose optimization techniques as appropriate to the performed exam an d include at least one of the following: Automated exposure control, adjustment of the mA and/or kV according t o size, and the use of iterative reconstruction technique.
[2023-11-06] MEDS ORDERED: CALCIUM 500 + VIT D 5 MCG (200 IU) TABLET PO SCH (14:00)
[2023-11-07] MEDS ORDERED: FOSAMAX PO SCH (06:00)
== END 2023-11-06 12:10 | disposition home or self-care (01) ==
LOC: ED 18:23 → MEDSURG B 18:23
PROVIDERS: ADMIT Hospitalist; ATTEND Physician Assistant
DX: Z85.850 Personal history of malignant neoplasm of thyroid; Z20.822 Contact with and (suspected) exposure to COVID-19; E89.0 Postprocedural hypothyroidism; R60.0 Localized edema; I10 Essential (primary) hypertension; M85.80 Other specified disorders of bone density and structure, unspecified site; Z79.899 Other long term (current) drug therapy; K21.9 Gastro-esophageal reflux disease without esophagitis; E86.0 Dehydration; E16.2 Hypoglycemia, unspecified; Z51.81 Encounter for therapeutic drug level monitoring; N17.9 Acute kidney failure, unspecified; R55 Syncope and collapse